=== PATIENT | male | born 1950 | race American Indian/Alaskan Native ===

== ENCOUNTER 2017-02-12 05:57 | Day surgery (SDC) | payer MEDICARE ==
--- NOTE | 2017-02-01 15:45 | Admit Criteria Form ---
Admission Criteria Documentation: AMBULATORY SURGERY EXCEPTION CRITERIA Ambulatory Surgery Exception Criteria ( Place 'X' for any and all applicable criteria): Surgery or procedure performed on ambulatory basis may require inpatient stay for[A] ANY ONE of the following(1)(2)(3)(4)(5)(6)(7)(8)(9): [X] I. A preoperative situation, condition, or finding that warrants inpatient stay as indicated by ANY ONE of the following: [X] a) Inpatient care needed because of severity of a disease or condition rather than the surgery (eg, severe cardiac or respiratory disease, severe infection) (15) (16 ) (17) (18) [] b) Emergent procedure (eg, angioplasty for acute ischemia)(19) [] c) Complex surgical approach or situation as indicated by ANY ONE of the following(3): [] i) Open approach needed instead of usual endoscopic, transcatheter, or other less invasive procedure [] ii) Difficult approach because of previous operation [] iii) Airway monitoring required after open neck procedures(20)(21) [] iv) Large mass requiring unusually extensive dissection [] v) Additional complicating feature requiring inpatient care (eg, drain management)(22(23): [] d) Major surgery in a pt with high anesthetic risk as indicated by ANY ONE of the following (2)(3)(5)(7)(8): [] i) ASA risk class III or higher (severe systemic disease impairing function) [D] [] ii) Advanced age (eg, older than 85 years)(14)(24) [] iii) Symptomatic heart failure(25) [] iv) Symptomatic asthma or COPD(8)(21) [] v) Morbid obesity with hemodynamic or respiratory problems(20)( 21)(26)(27) [] vi) Obstructive sleep apnea(20)(21) [] vii) Former premature infants who are younger than 60 weeks [] viii) High risk for severe postoperative abnormalities (eg, severe postoperative hypocalcemia after parathyroidectomy for severe hyperparathyroidism)(27)( 28) [] ix) Unstable angina(25) [] e) Drug-related risk requiring inpatient stay as indicated by ANY ONE of the following(5)(10)(14)(32)(33) [] i) Procedure requires discontinuing drugs or other therapy (eg , antiarrhythmic medication, antiseizure medication), which necessitates inpatient observation or treatment.(18)(31) [] ii) Major surgery and high risk drug use as indicated by ANY ONE of the following: [] 1) Active abuse of cocaine or similar drug [] 2) Monoamine oxidase inhibitor use [] 3) Other drug identified as posing risk [] f) Inadequate outpatient care situation as indicated by ANY ONE of the following(5)(10)(14)(32)(33) [] i) Patient lives remote from medical facility and procedure has urgent complication potential, and temporary nearby residence cannot be arranged [] ii) Patient will have postprocedure incapacitation and inadequate assistance at home, or alternative level of care cannot be arranged. [] iii) Patient will have long general anesthesia or procedure side effect resolution time, and competent person to stay with patient on first postoperative night at home or alternative level of care cannot be arranged. []iv) Other inadequate outpatient situation that cannot be handled by other means [] II. A perioperative event, condition, or finding that warrants inpatient stay as indicated by ANY ONE of the following (1)(2)(3): [] a) Inadequate physiologic recovery: cardiovascular, respiratory, or hemodynamic status not normal or near preoperative baseline(18) [] b) Hemodynamic instability [] c) Patient not alert with near normal or baseline mental status [] d) Temperature not normal or as expected and not appropriate for outpatient treatment of condition [] e) Ambulatory or appropriate activity level status not yet achieved post procedure [E](34)(35)(36) [] f) Operative site not appropriate (eg, unexpected or excessive drainage or bleeding) [] g) Postoperative effects not resolved or adequately managed (eg, significant pain or vomiting not appropriate for outpatient or next level of care)(10)(12) [] h) Complicating features requiring inpatient care as indicated by ANY ONE of the following(37): [] i) Severe complications of procedure (eg, bowel injury, airway compromise, vascular injury,severe hemorrhage) [] ii) Extensive (eg, dissection far beyond usual scope of procedure ) or prolonged (eg, 120 minutes beyond usual) surgery needed requiring inpatient postoperative care [] iii) Conversion to an open or complex procedure that requires inpatient care (eg, open vs laparoscopic cholecystectomy, abdominal vs vaginal hysterectomy)(38) [] iv) Comorbid condition or test result identified during or post procedure that requires inpatient care (7) [] v) Malignant hyperthermia(30) [] vi) Other complicating feature requiring inpatient care(22)(23) Inpatient stay may be needed until ALL of the following are present (1)(2)(3)(4) (5)(6)(10)(14)(33)(40): []a) Physiologic recovery: cardiovascular, respiratory, and hemodynamic status normal or near preoperative baseline []b) Hemodynamic stability []c) Patient alert, with near normal or baseline mental status []d) Temperature appropriate: patient afebrile or temperature appropriate for outpt treatment of condition []e) Activity level appropriate: ambulatory or appropriate activity level post procedure []f) Operative site appropriate as indicated by ALL of the following: []i) Site dry or with expected drainage []ii) Any blood noted is as expected for procedure. []g) Postoperative effects resolved or managed as indicated by ALL of the following: []i) Pain management appropriate for outpatient (or next level of) care(10) []ii) Minimal nausea and vomiting: if present, successfully treated with oral medication(12) []iii) Headache, dizziness, or drowsiness (if present) are mild. []h) Voiding status acceptable as indicated by ANY ONE of the following: []i) Voiding spontaneously []ii) No voiding but instructions given for follow-up in 6 to 8 hours []iii) Urinary catheter in place, and instructions given for follow-up []i) Complicating features requiring inpatient care manageable at a lower level of care(37) []j) Comorbid conditions manageable at a lower level of care(37) The original [employer] content created by [employer] has been revised. The portions of the content which have been revised are identified through the use of italic text or in bold, and [employer] has neither reviewed nor approved the modified material. All other unmodified content is copyright [employer]. Please see references footnoted in the original [employer] edition 2016
[2017-02-12] MEDS ORDERED: NACL BACTERIOSTATIC INFILTRATI ONE (06:21)
[2017-02-12] MEDS ORDERED: ZOFRAN IV PRN (06:31)
[2017-02-12] MEDS ORDERED: NORCO 5/325 PO PRN (06:31)
[2017-02-12] MEDS ORDERED: DILAUDID IV PRN (06:31)
--- NOTE | 2017-02-12 06:52 | Anesthesia Consultation ---
Anesthesia Consult and Med Hx Date of service: 02/12/17 - Airway Anesthetic Teeth Evaluation: Good ROM Head & Neck: Adequate Mental/Hyoid Distance: Adequate Mallampati Class: Class II Intubation Access Assessment: Probably Good - Pulmonary Exam CTA: Yes - Cardiac Exam Cardiac Exam: RRR - Pre-Operative Health Status ASA Pre-Surgery Classification: ASA3 Proposed Anesthetic Plan: General - Pulmonary Hx Smoking: No Hx Asthma: Yes (DAILY INHALER, breathing well today) Hx Sleep Apnea: No (TEGAN PRE SCREEN HIGH RISK) - Cardiovascular System Hx Hypertension: No
--- NOTE | 2017-02-12 06:52 | Anesthesia Day of Surgery ---
Anesthesia Day of Surgery - Day of Surgery Patient Examined: Yes Patient H&P Reviewed: Yes Patient is NPO: Yes
[2017-02-12] MEDS ORDERED: SUBLIMAZE ONE (06:59)
[2017-02-12] MEDS ORDERED: DIPRIVAN 10 MG/ML IV ONE (06:59)
[2017-02-12] MEDS ORDERED: NACL 0.9% 1000 ML 1,000 ML IV SCH (07:00)
[2017-02-12] MEDS ORDERED: ZOFRAN ONE (07:00)
[2017-02-12] MEDS ORDERED: PEPCID PO NR (07:00)
[2017-02-12] MEDS ORDERED: XYLOCAINE MPF 2% ONE (07:00)
[2017-02-12] MEDS ORDERED: VERSED IV NR (07:00)
[2017-02-12] MEDS ORDERED: DECADRON ONE (07:00)
[2017-02-12] MEDS ORDERED: MARCAINE 0.25% INFILTRATI ONE ×2 (07:19→08:33)
[2017-02-12] MEDS ORDERED: XYLOCAINE 1% 20 mL ONE (07:20)
[2017-02-12] MEDS ORDERED: ANCEF/STERILE WATER 2 GM/20 ML 2 GM/20 ML SYRINGE IV ONE (07:36)
[2017-02-12] MEDS ORDERED: ANCEF/STERILE WATER 2 GM/20 ML 2 GM/20 ML SYRINGE IV NR (08:00)
[2017-02-12] MEDS ORDERED: ePHEDrine SULFATE ONE (08:15)
[2017-02-12] MEDS ORDERED: XYLOCAINE 1% 20 mL INFILTRATI ONE (08:33)
[2017-02-12] MEDS ORDERED: NACL 0.9% IR ONE (08:33)
--- NOTE | 2017-02-12 09:23 | Post Operative Note ---
Date of procedure: 02/12/17 Pre-op diagnosis: L scrotal masses Post-op diagnosis: same Findings: l scrotal masses Procedure: L scrotal exp spermatocelectomy Anesthesia: GETA Surgeon: MIRZA CHAVEZ Estimated blood loss: minimal Pathology: list (lining) Specimen disposition: to lab Condition: stable Disposition: PACU
--- NOTE | 2017-02-12 09:24 | Discharge Summary ---
Short Stay Discharge Plan Activity: other (no straining ) Weight Bearing Status: Full Weight Bearing Diet: low fat, low cholesterol, low salt Wound: keep clean and dry Special Instructions: other (no straining ) Durable Medical Equipment Needed Upon Discharge: other (ice packs ) Follow up with: DOMITILA SOLIMAN MD [Primary Care Provider] - 3 Days
--- NOTE | 2017-02-12 10:15 | Operative Report ---
PREOPERATIVE DIAGNOSIS: Large left scrotal mass, multiloculated spermatocele multiple previous surgeries years ago. 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 PROCEDURE: Left scrotal exploration, left spermatocelectomy. SURGEON: Nolan Neal MD ANESTHESIA: General. FINDINGS: This is a gentleman with a large scrotal mass, it is enlarging. He has atrophy of the right testis. He now presents with this mass for excision. DESCRIPTION OF PROCEDURE: The patient was brought to the operating room and placed on the operating table. Following induction of anesthesia, placed in the supine position, prepped and draped in usual sterile fashion. A scrotal incision was made, carried down to the tunica vaginalis. The vaginalis was very stuck to the testis. This was in a circumferential fashion. Once we dissected most of the mass of the testis and be sure the vessels and the vasculature was not on the mass instead of taking it off the testicle, which was severely scarred. We opened it up in multiple areas because it was multiloculated. We opened it up and evacuated the contents. We took most of the sac and the lining off of the spermatic cell cavity. Using a 3-0 Vicryl the surrounding opening was oversewn. The patient tolerated the procedure well. Wound was copiously irrigated. No significant bleeding. Estimated blood loss less than 5 mL. Any small bleeder was cauterized or tied. A half-inch Talmage was placed in the dependent portion of the scrotum and secured with silk. The scrotal fascia was approximated with 3-0 chromic skin with 2-0 chromic. The patient tolerated the procedure well. Family was notified, brought to recovery room in stable condition. JOB# [id number] MITCHELL/COLLEEN
[2017-02-12 12:13] VITALS: BP 128/78
== END 2017-02-12 11:15 | disposition home or self-care (01) ==
LOC: OR 05:57
PROVIDERS: ATTEND Urology
DX: N43.41 Spermatocele of epididymis, single (principal); J45.909 Unspecified asthma, uncomplicated
CPT/HCPCS: 54840; 88304; J0690; J1100; J1170; J2250; J2405; J2704; J3010; J7030

== ENCOUNTER 2018-01-17 08:43 | Outpatient (CLI) | payer MEDICARE ==
--- NOTE | 2018-01-19 10:31 | Nuclear Medicine Report ---
NUCLEAR MEDICINE WHOLE-BODY BONE SCAN: 01/17/18 CLINICAL: Malignant neoplasm of prostate. COMPARISON: None. TECHNIQUE: 25.0 millicuries technetium 99m MDP was injected intravenously and whole body scans were obtained at 3 hours. FINDINGS: Probably benign uptake in bilateral shoulders, scapulae and sternoclavicular joints. Probably benign uptake in the hips and feet. No suspicious activity. IMPRESSION: Probably benign uptake in bilateral shoulders, scapulae, sternoclavicular joints, hips and feet. Consider correlation with x-rays.
== END 2018-01-17 08:44 | disposition home or self-care (01) ==
LOC: NM 08:43
PROVIDERS: ATTEND Urology
DX: C61 Malignant neoplasm of prostate (principal)
CPT/HCPCS: 78306; A9503